=== PATIENT | female | born 1980 | race Caucasian/White ===

== ENCOUNTER → 2018-10-01 10:20 | Outpatient (CLI) | payer OTHER | END | disposition home or self-care (01) | LOC: D.LDO 10:20 | PROVIDERS: ATTEND Obstetrics & Gynecology | DX: O09.513 Supervision of elderly primigravida, third trimester (principal); Z3A.30 30 weeks gestation of pregnancy ==

== ENCOUNTER → 2018-10-06 08:09 | Outpatient (CLI) | payer OTHER ==
[~2018-10-06 08:09] MED LIST: ALDOMET250 MG PO
== END | disposition home or self-care (01) ==
LOC: D.LDO 08:09
PROVIDERS: ATTEND Obstetrics & Gynecology
DX: O16.3 Unspecified maternal hypertension, third trimester (principal); Z3A.31 31 weeks gestation of pregnancy

== ENCOUNTER → 2018-10-09 15:16 | Outpatient (CLI) | payer OTHER | END | disposition home or self-care (01) | LOC: D.LDO 15:16 | PROVIDERS: ATTEND Obstetrics & Gynecology | DX: O26.893 Other specified pregnancy related conditions, third trimester (principal); Z3A.31 31 weeks gestation of pregnancy ==

== ENCOUNTER → 2018-10-13 08:54 | Outpatient (CLI) | payer OTHER | END | disposition home or self-care (01) | LOC: D.LABREF 08:54 → D.LDO 08:54 | PROVIDERS: ATTEND Obstetrics & Gynecology | DX: O16.3 Unspecified maternal hypertension, third trimester (principal); Z3A.32 32 weeks gestation of pregnancy ==

== ENCOUNTER → 2018-10-22 09:17 | Outpatient (CLI) | payer OTHER ==
[2018-10-22 10:04] LABS: BASOPHILS 0.1 % (0-2); EOSINOPHILS 0.7 % (0-7); HEMATOCRIT 35.4 % (36.0-48.0); HEMOGLOBIN 12.3 g/dL (12-16); IMMATURE GRANULOCYTES 0.7 % (0-5); MCH 31.1 pg (26.0-34.0); MCHC 34.7 g/dL (31.0-37.0); MCV 89.6 fL (80.0-100.0); MEAN PLATELET VOLUME 10.1 fL (7.4-10.4); NEUTROPHILS 74.5 % (40-80); PLATELET COUNT 159 10x3/uL (130-400); RBC 3.95 10x6/uL (4.00-5.40); RDW 13.5 % (11.5-14.5); WBC 8.9 10x3/uL (4.8-10.8)
[2018-10-22 10:12] LABS: ALBUMIN 2.7 g/dL (3.4-5.0); ALKALINE PHOSPHATASE 127 U/L (46-116); ALT (SGPT) 16 U/L (10-68); BILIRUBIN - TOTAL 0.39 mg/dL (0.2-1.3); CALC OSMOLALITY 270 mosm/kg (275-300); CALCIUM 9.2 mg/dL (8.5-10.1); CARBON DIOXIDE 21.9 mmol/L (21.0-32.0); CHLORIDE - SERUM 104 mmol/L (98-107); CREATININE - SERUM 0.5 mg/dL (0.6-1.3); GLUCOSE 115 mg/dL (74-106); POTASSIUM - SERUM 3.9 mmol/L (3.5-5.1); PROTEIN - SERUM 5.9 g/dL (6.4-8.2); SODIUM 135 mmol/L (136-145); UREA NITROGEN 13 mg/dL (7-18); eGFR NON AFRICAN AMERICAN > 90 mL/min (90-120)
[2018-10-22 10:14] LABS: BILIRUBIN - DIRECT 0.07 mg/dL (0.00-0.30); BILIRUBIN - INDIRECT 0.32 mg/dL (0.00-1.00); URIC ACID 4.2 mg/dL (2.6-7.2)
[2018-10-26 10:10] LABS: PROTEIN - URINE 4.3 mg/dL (0.0-11.9)
== END | disposition home or self-care (01) ==
LOC: D.LDO 09:17
PROVIDERS: ATTEND Obstetrics & Gynecology
DX: O13.3 Gestational [pregnancy-induced] hypertension without significant proteinuria, third trimester (principal); Z3A.33 33 weeks gestation of pregnancy

== ENCOUNTER → 2018-10-26 09:34 | Outpatient (CLI) | payer OTHER | END | disposition home or self-care (01) | LOC: D.LDO 09:34 | PROVIDERS: ATTEND Obstetrics & Gynecology | DX: O16.3 Unspecified maternal hypertension, third trimester (principal); Z3A.34 34 weeks gestation of pregnancy ==

== ENCOUNTER → 2018-10-29 09:07 | Outpatient (CLI) | payer OTHER | END | disposition home or self-care (01) | LOC: D.LDO 09:07 | DX: O10.913 Unspecified pre-existing hypertension complicating pregnancy, third trimester (principal); Z3A.34 34 weeks gestation of pregnancy ==

== ENCOUNTER → 2018-11-02 15:26 | Outpatient (CLI) | payer OTHER ==
[2018-11-02 16:45] LABS: APPEARANCE CLEAR (CLEAR); BILIRUBIN NEGATIVE (NEGATIVE); COLOR YELLOW (YELLOW); GLUCOSE NEGATIVE (NEGATIVE); KETONE NEGATIVE (NEGATIVE); NITRITE NEGATIVE (NEGATIVE); PROTEIN NEGATIVE (NEGATIVE); SPECIFIC GRAVITY 1.015 (1.005-1.020); UROBILINOGEN NORMAL (NORMAL)
[2018-11-02 16:48] LABS: BACTERIA FEW /hpf (NONE SEEN); EPITHELIAL CELLS OCC /hpf (0-5); WHITE CELLS - URINE 0-5 /hpf (0-5)
== END | disposition home or self-care (01) ==
LOC: D.LDO 15:26
PROVIDERS: ATTEND Obstetrics & Gynecology
DX: O10.913 Unspecified pre-existing hypertension complicating pregnancy, third trimester (principal); Z3A.35 35 weeks gestation of pregnancy

== ENCOUNTER → 2018-11-05 08:48 | Outpatient (CLI) | payer OTHER ==
[2018-11-05 09:34] LABS: BASOPHILS 0.2 % (0-2); EOSINOPHILS 0.7 % (0-7); HEMATOCRIT 34.8 % (36.0-48.0); HEMOGLOBIN 12.5 g/dL (12-16); IMMATURE GRANULOCYTES 0.3 % (0-5); LYMPHOCYTES 20.4 % (15-50); MCH 31.8 pg (26.0-34.0); MCHC 35.9 g/dL (31.0-37.0); MCV 88.5 fL (80.0-100.0); MEAN PLATELET VOLUME 10.6 fL (7.4-10.4); MONOCYTES 8.8 % (2-11); NEUTROPHILS 69.6 % (40-80); PLATELET COUNT 129 10x3/uL (130-400); RBC 3.93 10x6/uL (4.00-5.40); RDW 13.7 % (11.5-14.5); WBC 5.8 10x3/uL (4.8-10.8)
[2018-11-05 09:47] LABS: ALBUMIN 2.5 g/dL (3.4-5.0); ALKALINE PHOSPHATASE 160 U/L (46-116); ALT (SGPT) 15 U/L (10-68); BILIRUBIN - TOTAL 0.39 mg/dL (0.2-1.3); CALC OSMOLALITY 271 mosm/kg (275-300); CALCIUM 9.1 mg/dL (8.5-10.1); CARBON DIOXIDE 22.1 mmol/L (21.0-32.0); CHLORIDE - SERUM 104 mmol/L (98-107); CREATININE - SERUM 0.5 mg/dL (0.6-1.3); GLUCOSE 113 mg/dL (74-106); POTASSIUM - SERUM 3.6 mmol/L (3.5-5.1); PROTEIN - SERUM 5.8 g/dL (6.4-8.2); SODIUM 136 mmol/L (136-145); UREA NITROGEN 9 mg/dL (7-18); eGFR NON AFRICAN AMERICAN > 90 mL/min (90-120)
[2018-11-05 09:49] LABS: BILIRUBIN - DIRECT 0.06 mg/dL (0.00-0.30); BILIRUBIN - INDIRECT 0.33 mg/dL (0.00-1.00); URIC ACID 6.1 mg/dL (2.6-7.2)
== END | disposition home or self-care (01) ==
LOC: D.LDO 08:48
PROVIDERS: ATTEND Obstetrics & Gynecology
DX: O13.3 Gestational [pregnancy-induced] hypertension without significant proteinuria, third trimester (principal); Z3A.35 35 weeks gestation of pregnancy

== ENCOUNTER → 2018-11-09 14:00 | Outpatient (CLI) | payer OTHER ==
[~2018-11-09 14:00] MED LIST changes: +HYDROCODON-ACE1 EA10 PO; +MOTRIN600 MG PO
[2018-11-23 05:15] VITALS: BMI 27.3
== END | disposition home or self-care (01) ==
LOC: D.LDO 14:00
PROVIDERS: ATTEND Obstetrics & Gynecology
DX: O10.913 Unspecified pre-existing hypertension complicating pregnancy, third trimester (principal); Z3A.36 36 weeks gestation of pregnancy

== ENCOUNTER → 2018-11-12 09:44 | Outpatient (CLI) | payer OTHER ==
[~2018-11-12 09:44] MED LIST changes: -HYDROCODON-ACE1 EA10 PO; -MOTRIN600 MG PO
[2018-11-12 10:18] LABS: BASOPHILS 0.2 % (0-2); EOSINOPHILS 0.6 % (0-7); HEMATOCRIT 34.1 % (36.0-48.0); HEMOGLOBIN 11.8 g/dL (12-16); IMMATURE GRANULOCYTES 0.5 % (0-5); LYMPHOCYTES 18.1 % (15-50); MCH 31.1 pg (26.0-34.0); MCHC 34.6 g/dL (31.0-37.0); MEAN PLATELET VOLUME 11.1 fL (7.4-10.4); MONOCYTES 9.7 % (2-11); NEUTROPHILS 70.9 % (40-80); PLATELET COUNT 123 10x3/uL (130-400); RBC 3.79 10x6/uL (4.00-5.40); RDW 14.1 % (11.5-14.5); WBC 6.3 10x3/uL (4.8-10.8)
[2018-11-12 10:37] LABS: ALBUMIN 2.5 g/dL (3.4-5.0); ALKALINE PHOSPHATASE 163 U/L (46-116); ALT (SGPT) 17 U/L (10-68); BILIRUBIN - DIRECT 0.08 mg/dL (0.00-0.30); BILIRUBIN - INDIRECT 0.32 mg/dL (0.00-1.00); CALC OSMOLALITY 271 mosm/kg (275-300); CALCIUM 8.9 mg/dL (8.5-10.1); CARBON DIOXIDE 22.1 mmol/L (21.0-32.0); CHLORIDE - SERUM 103 mmol/L (98-107); CREATININE - SERUM 0.4 mg/dL (0.6-1.3); GLUCOSE 110 mg/dL (74-106); POTASSIUM - SERUM 3.8 mmol/L (3.5-5.1); PROTEIN - SERUM 5.8 g/dL (6.4-8.2); SODIUM 135 mmol/L (136-145); UREA NITROGEN 15 mg/dL (7-18); URIC ACID 5.8 mg/dL (2.6-7.2); eGFR NON AFRICAN AMERICAN > 90 mL/min (90-120)
== END | disposition home or self-care (01) ==
LOC: D.LDO 09:44
PROVIDERS: ATTEND Obstetrics & Gynecology
DX: O10.913 Unspecified pre-existing hypertension complicating pregnancy, third trimester (principal); Z3A.36 36 weeks gestation of pregnancy

== ENCOUNTER → 2018-11-16 10:20 | Outpatient (CLI) | payer OTHER ==
[~2018-11-16 10:20] MED LIST changes: +HYDROCODON-ACE1 EA10 PO; +MOTRIN600 MG PO
[2018-11-23 05:15] VITALS: BMI 27.3
== END | disposition home or self-care (01) ==
LOC: D.LDO 10:20
PROVIDERS: ATTEND Obstetrics & Gynecology
DX: O10.913 Unspecified pre-existing hypertension complicating pregnancy, third trimester (principal); Z3A.37 37 weeks gestation of pregnancy

== ENCOUNTER → 2018-11-19 08:51 | Outpatient (CLI) | payer OTHER ==
[2018-11-19 09:45] LABS: BASOPHILS 0.1 % (0-2); EOSINOPHILS 0.6 % (0-7); HEMATOCRIT 33.6 % (36.0-48.0); IMMATURE GRANULOCYTES 0.7 % (0-5); LYMPHOCYTES 18.8 % (15-50); MCH 31.9 pg (26.0-34.0); MCHC 35.7 g/dL (31.0-37.0); MCV 89.4 fL (80.0-100.0); MEAN PLATELET VOLUME 11.2 fL (7.4-10.4); MONOCYTES 8.5 % (2-11); NEUTROPHILS 71.3 % (40-80); PLATELET COUNT 118 10x3/uL (130-400); RBC 3.76 10x6/uL (4.00-5.40); RDW 14.4 % (11.5-14.5); WBC 6.7 10x3/uL (4.8-10.8)
[2018-11-19 09:49] LABS: ALBUMIN 2.4 g/dL (3.4-5.0); ALT (SGPT) 18 U/L (10-68); BILIRUBIN - DIRECT 0.07 mg/dL (0.00-0.30); CALC OSMOLALITY 273 mosm/kg (275-300); CALCIUM 8.8 mg/dL (8.5-10.1); CARBON DIOXIDE 20.4 mmol/L (21.0-32.0); CHLORIDE - SERUM 106 mmol/L (98-107); CREATININE - SERUM 0.6 mg/dL (0.6-1.3); GLUCOSE 123 mg/dL (74-106); POTASSIUM - SERUM 3.7 mmol/L (3.5-5.1); SODIUM 136 mmol/L (136-145); UREA NITROGEN 15 mg/dL (7-18); URIC ACID 5.9 mg/dL (2.6-7.2); eGFR NON AFRICAN AMERICAN > 90 mL/min (90-120)
[2018-11-19 10:02] LABS: ALKALINE PHOSPHATASE 172 U/L (46-116); BILIRUBIN - INDIRECT 0.24 mg/dL (0.00-1.00); BILIRUBIN - TOTAL 0.31 mg/dL (0.2-1.3); PROTEIN - SERUM 5.6 g/dL (6.4-8.2)
[2018-11-23 05:15] VITALS: BMI 27.3
== END | disposition home or self-care (01) ==
LOC: D.LDO 08:51
PROVIDERS: Obstetrics & Gynecology; ATTEND Obstetrics & Gynecology
DX: O10.913 Unspecified pre-existing hypertension complicating pregnancy, third trimester (principal); Z3A.37 37 weeks gestation of pregnancy

== ENCOUNTER 2018-11-23 04:58 | Inpatient (IN) | payer OTHER ==
[~2018-11-23] VITALS: Ht 165.1 cm; Wt 74.4 kg
[2018-11-23] VITALS (10 sets, daily range): BP systolic 111–154; BP diastolic 57–102; Ht 165.1 cm; Wt 74.4 kg
[~2018-11-23 04:58] MED LIST changes: -HYDROCODON-ACE1 EA10 PO; -MOTRIN600 MG PO
[2018-11-23 06:06] LABS: HEMOGLOBIN 13.1 g/dL (12-16); MCH 31.6 pg (26.0-34.0); MCHC 35.4 g/dL (31.0-37.0); MCV 89.2 fL (80.0-100.0); RBC 4.15 10x6/uL (4.00-5.40); RDW 14.4 % (11.5-14.5); WBC 6.9 10x3/uL (4.8-10.8)
--- NOTE | 2018-11-23 06:14 | NUR ---
DR GORDON AT NURSES STATION, REPORT GIVEN ON SVE, STATES TO START PITOCIN INDUCTION AND INCREASE BY 2MU EVERY 15 MINUTES.
[2018-11-23 07:08] LABS: APPEARANCE HAZY (CLEAR); BILIRUBIN NEGATIVE (NEGATIVE); COLOR STRAW (YELLOW); GLUCOSE NEGATIVE (NEGATIVE); KETONE NEGATIVE (NEGATIVE); NITRITE NEGATIVE (NEGATIVE); PROTEIN NEGATIVE (NEGATIVE); SPECIFIC GRAVITY 1.005 (1.005-1.020); UROBILINOGEN NORMAL (NORMAL)
[2018-11-23 07:09] LABS: BACTERIA MODERATE /hpf (NONE SEEN); EPITHELIAL CELLS 0-5 /hpf (0-5); MUCUS <1+ /lpf (NONE SEEN); RED CELLS - URINE RARE /hpf (0-5)
--- NOTE | 2018-11-23 17:52 | NUR ---
BABY BOY BORN AT 1741
--- NOTE | 2018-11-23 18:53 | NUR ---
FUNDUS PALPATED. FIRM AND MIDLINE.
--- NOTE | 2018-11-23 19:30 | NUR ---
PATIENT RECEIVED FROM RECOVERY AT THIS TIME TO ROOM 1274. VS WNL, PT DROWSY BUT ABLE TO RESPOND TO VERBAL STIMULI, REQUESTS A SWEET TEA. FAMILY STATES THAT THEY WILL GET HER ONE. RESPIRATIONS EVEN AND NON LABORED. LOW TRANSVERSE INCISION COVERED WITH DRESSING, DRESSING REMAINS CLEAN DRY AND INTACT. PERICARE DONE, PAD CHANGED. BLEEDING MODERATE WITH NO CLOTS NOTED. FUNDUS FIRM MIDLINE AT THE U. COSME CATHETER DRAINING TO GRAVITY WITH 200 ML OLIVIA COLORED URINE IN CHAMBER. SCD BOOTS ON BILATERALLY AND CONNECTED TO WORKING MACHINE. SHIFT ASSESSMENT COMPLETED, SEE FLOWSHEET.
--- NOTE | 2018-11-23 20:42 | NUR ---
PT AT THIS TIME, RATES HER PAIN 5/10. INSTRUCTED ON OPERATOR USE, PT VERBALIZES UNDERSTANDING.
--- NOTE | 2018-11-23 21:11 | NUR ---
PERICARE PERFORMED, BLEEDING SMALL, PAD CHANGED AND FRESH ICE PACK PLACED TO ABDOMEN. COSME CATHETER DRAINING TO GRAVITY, 50 ML OLIVIA URINE NOTED IN CHAMBER.
--- NOTE | 2018-11-23 22:05 | NUR ---
PATIENT SITTING UP IN BED HOLDING INFANT, NEW BAG OF IV FLUIDS HUNG AT THIS TIME, SEE EMAR. PT DENIES OTHER NEEDS. WILL CONTINUE TO MONITOR.
--- NOTE | 2018-11-23 23:00 | NUR ---
PT RESTING QUIETLY WITH EYES OPEN, STATES THAT SHE IS TRYING TO GET SOME REST. FATHER OF BABY IN THE ROOM HOLDING THE BABY AT THIS TIME. PERICARE PERFORMED, PAD CHANGED. 150ML YELLOW URINE NOTED IN CHAMBER. BED REMAINS LOW IN LOCKED POSITION, SIDE RAILS UP X2, CALL ARANDA AND TRAY TABLE IN REACH.
--- NOTE | 2018-11-24 01:06 | NUR ---
IN TO CHECK ON PATIENT, PATIENT SLEEPING WITH RESPIRATIONS EVEN AND NON LABORED. SIGNIFICANT OTHER REMAINS AT BEDSIDE HOLDING INFANT. NO DISTRESS OR NEEDS IDENTIFIED AT THIS TIME. WILL CONTINUE TO MONITOR.
--- NOTE | 2018-11-24 02:38 | NUR ---
PT , TORADOL 30MG SLOW IVP PER MD ORDERS AND PT REQUEST. PT ENCOURAGED TO CALL WHEN SHE IS FINISHED SO WE CAN PERFORM PERICARE.
--- NOTE | 2018-11-24 03:30 | NUR ---
PT REPOSITIONED FOR COMFORT. PILLOWS PROPPED BEHIND BACK. DENIES OTHER NEEDS.
--- NOTE | 2018-11-24 04:20 | NUR ---
PATIENT RESTING QUIETLY WITH EYES CLOSED, NO DISTRESS NOTED, RESPIRATIONS EVEN AND NON LABORED. WILL CONTINUE TO MONITOR.
--- NOTE | 2018-11-24 05:30 | NUR ---
PERICARE PERFORMED, CLEAN PADS PLACED. BLEEDING SMALL WITHOUT CLOTS. PT REPOSITIONED IN BED FOR . BED REMAINS LOW IN LOCKED POSITION, SIDERAILS UPX2, CALL ARANDA AND TRAY TABLE IN REACH. WILL CONTINUE TO MONITOR.
--- NOTE | 2018-11-24 05:35 | NUR ---
PT ASSISTED WITH GETTING TO BREAST, POSITIVE LATCH NOTED WITH AUDIBLE SUCK,AND SWALLOW.
--- NOTE | 2018-11-24 06:00 | NUR ---
PATIENT FINISHED , HOLDING INFANT AT THIS TIME, DECLINES PUTTING BABY BACK IN CRIB, STATES THAT SHE WANTS TO HOLD THE BABY. BED LOW, LOCKED AND SIDE RAILS UPX2. CALL ARANDA AND TRAY TABLE REMAIN IN REACH. WILL CONTINUE TO MONITOR.
[2018-11-24 07:09] LABS: BASOPHILS 0.1 % (0-2); EOSINOPHILS 0.1 % (0-7); IMMATURE GRANULOCYTES 0.3 % (0-5); LYMPHOCYTES 9.2 % (15-50); MCH 31.3 pg (26.0-34.0); MCHC 34.9 g/dL (31.0-37.0); MCV 89.7 fL (80.0-100.0); MEAN PLATELET VOLUME 11.2 fL (7.4-10.4); MONOCYTES 7.2 % (2-11); NEUTROPHILS 83.1 % (40-80); PLATELET COUNT 113 10x3/uL (130-400); RDW 14.3 % (11.5-14.5)
[2018-11-24 07:18] LABS: HEMATOCRIT 29.5 % (36.0-48.0); HEMOGLOBIN 10.3 g/dL (12-16); RBC 3.29 10x6/uL (4.00-5.40); WBC 12.5 10x3/uL (4.8-10.8)
[2018-11-24 07:18] LABS: RAPID PLASMA REAGIN Non Reactive (Non Reactive)
--- NOTE | 2018-11-24 07:30 | NUR ---
THIS RN TO ROOM WITH DR GORDON. IV SALINE LOCKED AND CARRIER PACKER D/C. REMOVES BANDAGE FROM BIKINI INCISION AND IT IS CLEAN, INTACT WITH RENETTA. FUNDUS FIRM AT U/U MIDLINE WITH SCANT LOCHIA NOTED. RATES PAIN AT 2/10 AND UNDERSTANDS WILL NEED TO CALL FOR PAIN MED. COSME CATH LEFT IN PLACE SO THAT PT MAY FINISH INFANT AND EAT HER BREAKFAST. WILL CALL WHEN READY FOR IT TO BE REMOVED.
--- NOTE | 2018-11-24 10:30 | NUR ---
COSME CATH REMOVED INTACT WITH 1800ML OUTPUT NOTED. FUNDUS FIRM MIDLINE AND SCANT LOCHIA NOTED. DENIES NEED TO VOID AT THIS TIME AND WILL CALL NURSE WHEN READY TO GET UP FROM BED.
--- NOTE | 2018-11-24 11:45 | NUR ---
PT CALLS TO GET UP TO VOID, SHE IS ABLE TO MOVE SELF TO SITTING UP ON SIDE OF BED AND DENIES DIZZINESS OR NAUSEA. AMB TO BATHROOM WITH LITTLE ASSISTANCE AND VOIDS 400ML WITHOUT COMPLAINT. BETTE CARE PER SELF, MESH BREIFS AND BETTE PAD ON AND GOWN CHANGED. BACK TO BED WITHOUT ASSISTANCE AND ABLE TO POSITION SELF FOR COMFORT. IN CRIB AT BEDSIDE AND SPOUSE PRESENT. RATES PAIN AT 3/10. NO NEEDS AT THIS TIME.
--- NOTE | 2018-11-24 14:15 | NUR ---
CALLED TO ROOM WITH COMPLAINT OF PAIN THAT SHE RATES AT 6/10, MEDS GIVEN SEEN ON EMAR. LARGE ICE WATER PER REQUEST. IN RO0M AND PT VISITING WITH FAMILY, NO OTHER NEEDS AT THIS TIME.
--- NOTE | 2018-11-24 17:30 | NUR ---
CALLED TO ROOM, PT NEEDING TO VOID. SHE IS ABLE TO GET UP AND AMB TO BATHROOM WITHOUT ANY ASSISTANCE NEEDED. VOIDED 300ML WITHOUT COMPLAINT AND BETTE CARE PER SELF. BACK TO BED AND POSITIONED WITH HEAD OF BED RAISED TO 45DEGREES. PT RATES PAIN AT 3/10 AT THIS TIME. STATES SHE WANTS TO EAT THAN WILL CALL FOR PAIN MED. SIDE RAILS UP X 2 CALL LIGHT IN REACH.
--- NOTE | 2018-11-24 18:45 | NUR ---
CALLS OUT WITH REQUEST FOR MOTRIN, MED GIVEN SCANNED ON EMAR. RATES PAIN AT 5/10 AT THIS TIME. NO OTHER NEEDS VOICED. CALL LIGHT IN REACHL.
[2018-11-24 19:44] VITALS: BP 130/75
--- NOTE | 2018-11-24 19:44 | NUR ---
PT, AWAKE AND ORIENTED. SKIN WARM AND DRY. SALINE LOCK NOTED IN LT WRIST AREA. BREATH SOUNDS CLEAR AND BOWEL SOUNDS AUDIBLE. ABD. INCISION NOTED WITH RENETTA. ABD DISTENDED BUT SOFT TO TOUCH. PT. RELATES THAT SHE HAS NOT PASSED GAS. RECOMMENDED PT. AMBULATE IN HALLWAY PRIOR TO GOING TO BED FOR NIGHT. PT. STATES UNDERSTANDING. RATES PAIN A 3 OF 10 ON PAIN SCALE.
--- NOTE | 2018-11-24 19:47 | NUR ---
PT. REQUEST SALINE LOCK REMOVED. STATES IT IS PAINFUL. SALINE LOCK REMOVED WITH TIP INTACT.
--- NOTE | 2018-11-24 19:48 | NUR ---
PT. INFORMED OF PLAN TO TRANSFER TO [facility]. PT.STATES AGREEMENT.
--- NOTE | 2018-11-24 20:49 | NUR ---
REQUESTING PAIN MED FOR PAIN SCORE OF 6 OF 10 FOR INCISIONAL PAIN WITH MOVEMENT. MED GIVEN ORDERED.
--- NOTE | 2018-11-24 22:06 | NUR ---
TRANSFERRED TO VIA WHEELCHAIR. REPORT TO Hugo TONEY RN.
--- NOTE | 2018-11-24 22:06 | NUR ---
PT TRANSFERRED SELF FROM WC TO BED WITH NO DIFFICULTY, PT ORIENTED TO ROOM, DENIES NEEDS AT THIS TIME, BED IN LOW POSITION, SIDE RAILS X 2, CALL LIGHT IN REACH, INFANT IN OPEN CRIB CART AND FOB AT BEDSIDE
--- NOTE | 2018-11-24 22:22 | NUR ---
PT RESTING, VISITING WITH FOB, INFANT IN OPEN CRIB CART AT BEDSIDE, PT DENIES NEEDS OR PAIN AT THIS TIME
--- NOTE | 2018-11-24 22:45 | NUR ---
DR ZUÑIGA ON L&D UNIT, VERBAL ORDER RECEIVED TO CHANGE VS TO Q8H
--- NOTE | 2018-11-25 00:12 | NUR ---
PT GETTING READY TO BREASTFEED INFANT, REQUESTS PAIN MED WHEN DUE, INFORMED PT THAT IT WAS DUE AROUND 1AM, PT VERBALIZES UNDERSTANDING, DENIES FURTHER NEEDS AT THIS TIME, FOB AT BEDSIDE
--- NOTE | 2018-11-25 01:07 | NUR ---
PT , ADM NORCO AND AND MOTRIN PER MD ORDERS, SEE EMAR, WITH FRESH H20, PT DENIES FURTHER NEEDS, FOB AT BEDSIDE
[2018-11-25 04:02] VITALS: BP 94/53
--- NOTE | 2018-11-25 04:02 | NUR ---
PT RESTING WITH EYES CLOSED, AROUSES TO SOFT VERBAL STIMULATION, VS OBTAINED, PT DENIES NEEDS OR PAIN AT THIS TIME, IN OPEN CRIB CART BACK TO [facility] VIA TISHA HENSON LPN, FOB AT BEDSIDE
--- NOTE | 2018-11-25 06:11 | NUR ---
PT AWAKE, INFANT, C/O INC PAIN, ADM PAIN MED PER MD ORDERS, SEE EMAR, PT DENIES FURTHER NEEDS, FOB ASLEEP AT BEDSIDE
--- NOTE | 2018-11-25 07:00 | NUR ---
REPORT TO MIMI BAL RN
[2018-11-25 07:30] VITALS: BP 109/66
--- NOTE | 2018-11-25 07:30 | NUR ---
VS OBTAINED PER MIMI BAL RN
--- NOTE | 2018-11-25 08:00 | NUR ---
ASSESSMENT PER FLOW SHEET, FF, ML, U/1, PT REPORTS LITE-MOD BLEEDING WITH NO CLOTS, BIKINI INC WITH RENETTA CDI WITH NO DRAINAGE NOTED, BETTE PAD OVER INC FOR COMFORT AND MOISTURE CONTROL, PT REPORTS FLATUS, NO BM AND VOIDING WITH NO DIFFICULTY, PT DENIES NEEDS AT THIS TIME, FOB HOLDING INFANT
--- NOTE | 2018-11-25 09:05 | NUR ---
PT UP IN SHOWER AT THIS TIME, FOB HOLDING INFANT
--- NOTE | 2018-11-25 12:14 | NUR ---
PT SITTING ON SIDE OF BED, FOB HOLDING INFANT, ADM PAIN MED PER MD ORDERS, SEE EMAR, PT DENIES FURTHER NEEDS
--- NOTE | 2018-11-25 13:05 | NUR ---
PT SITTING UP IN BED EATING LUNCH, RATES PAIN 2/10, DENIES NEEDS AT THIS TIME, INFANT IN OPEN CRIB CART AND FOB AT BEDSIDE
[2018-11-25] MEDS ORDERED: HYDROCODON-ACE1 EA10 PO (14:52)
[2018-11-25] MEDS ORDERED: MOTRIN600 MG PO (14:53)
--- NOTE | 2018-11-25 15:03 | NUR ---
SITTING UP IN BED HOLDING . DISCHARGE INST VERBAL AND WRITTEN GIVEN. PRESCRIPTION WITH 2 MEDS GIVEN ALONG WITH PT MED REC AND DRUG DATA SHEETS. PT HEALTH SUMMARY GIVEN. AWHONN POST DELIVERY SIGNS FORM GIVEN. PFW POST INST GIVEN AND POST OP INST GIVEN. PT TO READS INSTRUCTIONS AND INFORM NURSE OF QUESTIONS.
--- NOTE | 2018-11-25 16:16 | NUR ---
DISCHARGED HOME WITH . TO AUTO VIA W/C.
== END 2018-11-25 16:17 | disposition home or self-care (01) | DRG 785 ==
LOC: D.LD → D.WS 11-24 22:06 → D.LD 12-19 14:45
PROVIDERS: ADMIT Obstetrics & Gynecology; ATTEND Obstetrics & Gynecology
PROC: 0UL70ZZ Occlusion of Bilateral Fallopian Tubes, Open Approach (ICD-10-PCS; 2018-11-23)
PROC: 10907ZC Drainage of Amniotic Fluid, Therapeutic from Products of Conception, Via Natural or Artificial Opening (ICD-10-PCS; 2018-11-23)
PROC: 3E033VJ Introduction of Other Hormone into Peripheral Vein, Percutaneous Approach (ICD-10-PCS; principal; 2018-11-23 16:00)
PROC: 10D00Z1 Extraction of Products of Conception, Low, Open Approach (ICD-10-PCS; 2018-11-23 16:00)
DX: O10.92 Unspecified pre-existing hypertension complicating childbirth (principal); O99.334 Smoking (tobacco) complicating childbirth; Z3A.38 38 weeks gestation of pregnancy; Z37.0 Single live birth; O75.89 Other specified complications of labor and delivery; O09.513 Supervision of elderly primigravida, third trimester